=== PATIENT | female | born 1985 | race Caucasian/White ===

== ENCOUNTER 2017-10-19 06:47 | Day surgery (SDC) | payer OTHER ==
--- NOTE | 2017-10-18 14:17 | GHP ---
[f rep st] PREOP HISTORY AND PHYSICAL DATE OF ADMISSION: 10/19/2017 The patient is slated for surgery on 10/19/2017 on the Gynecology Service. HISTORY UPON ADMISSION: The patient is a 31-year-old G3, P1, A1, currently with concern for a blight ed ovum and being admitted for D and C. The patient had last menstrual period on August 26; that was her first period after an SAB at the end of June. The patient had lab evaluations due to the p revious SAB and showed good increase of her hCG on September 29 and October 01. She, however, has had more blood work that does not show a reassuring rise on October 06 and October 14 with hCG levels of 4577 on October 06 and 4582 on October 14. With this plateau of lab work, this is concerning, as t he ultrasound also does not show any development passed the gestational sac. The patient's gestation al sac is 5 weeks 4 days in size on October 14, and the should be at 7 weeks' gestation. There is no yolk sac or pole. There is a moderate-size subchorionic hemorrhage at 1.5 cm. Michael aterally, the ovaries appear normal, and there is no free fluid. There is what appears to be the cor pus luteum cyst on the right ovary. The patient has not had any bleeding or cramping. She has been advised as to the lack of ultrasound findings, given the level of the hCG and also the plateau of hCG levels is not reassuring. The patient is advised that this does not seem to be going forw andre, and the options of [id number] versus proceed with Cytotec versus D and C, and the patient want s definitive management with a D and C. She is wanting to have this done prior to travel before the s later this week. The patient will be advised as to the risks of the procedure at the bedside by Dr. Tovar. -related labs: Maternal blood type O-positive. HCG levels as noted above. PAST MEDICAL HISTORY: Herniated disks. PAST SURGICAL HISTORY: Left ACL repair in 2000. PAST OBSTETRIC HISTORY: Vaginal delivery at 41+ weeks in December 2015, uncomplicated with a viable female. Mild hemorrhage after the delivery of 500 mL. Early SAB in June 2017. Current consistent with a blighted ovum. ALLERGIES: No known drug allergies. CURRENT MEDICATIONS: Only vitamins. REVIEW OF SYSTEMS: 10 systems reviewed with the positives and negatives noted initially. LIMITED PHYSICAL EXAMINATION: VITAL SIGNS: Blood pressure 100/56, and the patient was clinically af ebrile on an office visit. GENERAL: The patient is a well-appearing white female in no physical dis tress. PELVIC: At the time of ultrasound, no tenderness, and the uterus and ovaries are normal. ASSESSMENT: Blighted ovum with plateaued hCG levels and gestational sac not consistent with 7 weeks with no pole or yolk sac. PLAN: The patient will present to Labor and Delivery for D and C on 10/19/2017. /[id number]/MODL
[2017-10-19] MEDS ORDERED: DOXYCYCLINE HYCLATE 100 MG CAP/TAB PO ONE ×2 (08:00→09:00)
--- NOTE | 2017-10-19 08:47 | PDANEPAE ---
ANE History of Present Illness Missed Ab. ANE Past Medical History - Cardiovascular History Hx Hypertension: No Hx Arrhythmias: No Hx Chest Pain: No Hx Coronary Artery / Peripheral Vascular Disease: No Hx CHF / Valvular Disease: No Hx Palpitations: No - Pulmonary History Hx COPD: No Hx Recent Upper Respiratory Infection: No Hx Oxygen in Use at Home: No Hx Sleep Apnea: No - Chronic Pain History Chronic Pain: Yes (Back) - Surgical History Prior Surgeries: General anesthesia for knee surgery (ACL). ANE Review of Systems Review of systems is: negative Review of Systems: - Exercise capacity Exercise capacity: >=4 METS ANE Patient History - Allergies Allergies/Adverse Reactions: No Known Allergies Allergy (Unverified 01/11/16 04:37) - Home Medications Home Medications: Vit27&Calcium/Iron/FA [] 1 tab PO DAILY 01/11/16 [Last Taken ] [place]-3 Fatty Acids/Fish Oil [Fish Oil 1,000 mg Capsule] 1 cap PO DAILY [Last Taken Unknown] Vit B Cmplx 3/Folic AC/C/Biot 1 tab PO DAILY 10/19/17 [Last Taken Unknown] - Anes Hx Anes Hx: no prior problems - Smoking Hx Smoking Status: Never smoked - Alcohol Use Alcohol Use: Rarely - Family Anes Hx Family Anes Hx: neg - N/A ANE Labs/Vital Signs - Vital Signs Height: 160.02 cm Weight: 49.895 kg ANE Physical Exam - Airway Neck exam: FROM Mallampati Score: Class 1 Mouth exam: normal dental/mouth exam - Pulmonary Pulmonary: no respiratory distress - Cardiovascular Cardiovascular: regular rate and rhythym - ASA Status ASA Status: I ANE Anesthesia Plan Anesthesia Plan: GA with mask
[2017-10-19] MEDS ORDERED: MIDAZOLAM 2 MG/2 ML VIAL ONE (08:49)
[2017-10-19] MEDS ORDERED: PROPOFOL/EMULSION 500 MG/50 ML BOTTLE IV ONE (09:01)
[2017-10-19] MEDS ORDERED: LIDOCAINE 2% 5 ML SDV ONE (09:03)
[2017-10-19] MEDS ORDERED: fentaNYL 100 MCG/2 ML INJ ONE (09:03)
[2017-10-19] MEDS ORDERED: DEXAMETHASONE 4 MG/ML VIAL ONE ×2 (09:04)
[2017-10-19] MEDS ORDERED: ONDANSETRON 4 MG/2 ML VIAL ONE (09:04)
[2017-10-19] MEDS ORDERED: HYDROCODONE/APAP 5/325 TAB PO PRN (10:11)
[2017-10-19] MEDS ORDERED: IBUPROFEN 600 MG TAB PO PRN (10:11)
--- NOTE | 2017-10-19 10:15 | POSTOPPROG ---
Post Op Note Date of Operation: 10/19/17 Surgeon: Francheska Tovar Anesthesiologist: Dr Felipe Duff Anesthesia: GET(General Endotracheal) Pre-op Diagnosis: missed @ 7 weeks Post-op Diagnosis: same Procedure: suction D and C Findings: normal uterus Inf/Abcess present in the surg proc area at time of surgery?: No Depth: Organ Space EBL: Minimal Total fluids administered: 500 Complications: none Specimen(s): products of conception
[2017-10-19] MEDS ORDERED: fentaNYL 100 MCG/2 ML INJ IVP PRN (10:31)
[2017-10-19] MEDS ORDERED: ONDANSETRON 4 MG/2 ML VIAL IVP PRN (10:31)
[2017-10-19] MEDS ORDERED: NALOXONE HCL 0.4 MG/ML INJ IVP PRN (10:31)
--- NOTE | 2017-10-19 10:31 | POSTANESTH ---
Post Anesthetic Evaluation Cardiovascular Status: Normal, Stable, Similar to Pre-Op Cond Respiratory Status: Normal, Stable, Similar to Pre-op Cond. Level of Consciousness/Mental Status: Can Participate in Eval, Alert and Oriented Pain Control: Adequate, Prn Tx Ordered Nausea/Vomiting Control: Adequate, Prn Tx Ordered Complications Possibly Related to Anesthesia: None Noted
[2017-10-19] MEDS ORDERED: KETOROLAC 30 MG/1 ML SDV ONE (10:55)
--- NOTE | 2017-10-19 15:11 | GOP ---
[f rep st] OPERATIVE REPORT DATE OF OPERATION: 10/19/2017 SURGEON: Francheska Tovar MD ANESTHESIA: General anesthesia. ANESTHESIOLOGIST: Felipe Duff MD PREOPERATIVE DIAGNOSIS: Missed at 7 weeks. POSTOPERATIVE DIAGNOSIS: Missed at 7 weeks. PROCEDURE PERFORMED: Suction dilation and curettage. FINDINGS: SPECIMENS: Products of conceptions. ESTIMATED BLOOD LOSS: Less than 10 cc. INDICATIONS: The patient is a 31-year-old, 3, para 1-0-1-1, who was admitted for a missed ab ortion, blighted ovum. Her last menstrual period was August 26 and that was her first period af ter a SAB at the end of June. The patient had lab work initially showing normal increase in hCG on September 29 and October 01; however, recurrent blood work a week later showed plateauing levels o f hCG. Ultrasound was performed when she was to be 7 weeks gestation and showed a gestational sac wi thout a pole or yolk sac and a moderate-sized subchorionic hemorrhage adjacent to the gestation al sac. Ovaries were normal. There was no free fluid. The patient has had no bleeding or cramping. She was advised that the lack of ultrasound findings consistent with her dates, as well as the plat eauing of the beta hCG, and concern for an abnormal , a blighted ovum. The patient was coun seled on treatment options with expectant management versus medical management with Cytotec versus felix ction dilation and curettage. The patient wished to have surgical management to not prolong the inev itable. The patient was consented for the procedure. She understood the risks and benefits. The ri sks including bleeding, infection, damage to the uterus, including possible risk of perforation damag e to other organs if perforation were to occur, risk of incomplete removal of all of the tissue with need for spontaneous expulsion or repeat procedure at a later time, and compromise of future fertilit y. She understood these risks and benefits and agreed to proceed. DESCRIPTION OF PROCEDURE: Patient was taken to the operating room where she was placed under general anesthesia without difficulty. She was prepped and draped in the dorsal lithotomy position and she had previously just drained her bladder. A weighted speculum was placed in the vagina and a Castellano retractor was used to visualize the cervix. The anterior lip of the cervix was grasped with a Roman tenaculum. The uterus sounded to 8 cm. The cervix was then gently dilated with Harrison dilators to a #8. A #8 curved suction curette was gently advanced from the cervix to the fundus, and tissue was removed with several passes of the suction dev ice. After no further tissue was visualized during suctioning, sharp curettage was then performed in a clockwise fashion until a gritty texture was palpated throughout the entire endometrial cavity. F inal pass of the suction revealed little bleeding and no further tissue. The tenaculum and the speculum were removed. A transvaginal ultrasound was then performed and a norm al uterus with a thin endometrial stripe and no further gestational sac or products of conception wer e visualized. The anterior lip of the cervix was hemostatic. Patient's bleeding was minimal. Lisa amaro tolerated the procedure well. Sponge, lap, needle, and instrument counts were correct x2. Chinedu paredes went to the recovery room in good condition. IV FLUIDS: 500 cc. URINE OUTPUT: Not measured. /[id number]/MODL
== END 2017-10-19 12:10 | disposition home or self-care (01) ==
LOC: FOBOP 06:47
PROVIDERS: ATTEND Obstetrics & Gynecology
PROC: 10D17ZZ Extraction of Products of Conception, Retained, Via Natural or Artificial Opening (ICD-10-PCS; principal; 2017-10-19)
DX: O02.1 Missed abortion (principal)
CPT/HCPCS: J1100; J1885; J2250; J2405; J2704; J3010

== ENCOUNTER 2018-10-04 07:30 | Inpatient (IN) | payer OTHER ==
--- NOTE | 2018-10-04 16:28 | PDGENHP ---
History and Physical - Chief Complaint IOL, 41 wks - History of Present Illness 32 yo today at 41w0d by MALATHI 09/27/18. She was seen in clinic today were SCE was 4cm and she had membranes stripped. ANCA WNL, but NST non-reactive with flat baseline. Recommended to present to L&D to start IOL. Had SROM and spontaneous labor with her first around 41 weeks. GBS positive on UCx in 1st tri so presumed postive carrier. Other issues: R CROSSCUTTER ROLLED GLASS 6x4mm with normal NIPT, resolved on F/u US. Anemia on iron supps. Metformin XR 750mg started 2 wks prior to delivery due to "atypical" PCOS. H/o chronic back pain. labs: O pos Antibody negative Hep B/HIV/RPR neg Rubella IMMUNE GBS POSITIVE (in urine UCx 1st tri) NIPT normal History Information - Allergies/Home Medication List Allergies/Adverse Reactions: No Known Allergies Allergy (Unverified 01/11/16 04:37) Home Medications: Vit27&Calcium/Iron/FA [] 1 tab PO DAILY 01/11/16 [Last Taken ] [place]-3 Fatty Acids/Fish Oil [Fish Oil 1,000 mg Capsule] 1 cap PO DAILY [Last Taken Unknown] Vit B Cmplx 3/Folic AC/C/Biot 1 tab PO DAILY 10/19/17 [Last Taken Unknown] I have personally reviewed and updated: family history, medical history, social history, surgical history - Past Medical History Additional medical history: Anemia, chronic back pain, atypical PCOS, h/o SAB x 2 - Surgical History Additional surgical history: x 1 - Family History Positive for: non-pertinent - Social History Smoking Status: Never smoked Alcohol Use: None Review of Systems Review of Systems: ROS: 10pt was reviewed & negative except for what was stated in HPI & below Physical Exam Physical Exam: Appears comfortable, NAD, pleasant. Belly soft, ND, longitudinal lie. FHR 140 bpm, minimal variability, rare accels, rare variable decels Lab Data & Imaging Review 10/04/18 16:30 Assessment & Plan Assessment: 32 yo at 41w0d here for IOL due to non-reassuring tracing on NST, post-dates. - PCN start now, will AROM after 1st dose in to begin IOL. Pit if needed after 2 hours. - CEFM due to non-reassuring status. - GBS pos - PCN. JM
[2018-10-04] MEDS ORDERED: OXYTOCIN/RINGERS LACTATE 1,000 ML IV PRN (16:34)
[2018-10-04] MEDS ORDERED: LR 1,000 ML IV PRN ×2 (16:34→18:53)
[2018-10-04] MEDS ORDERED: TERBUTALINE SULFATE 1 MG/ML VIAL IV PRN (16:34)
[2018-10-04] MEDS ORDERED: LIDOCAINE 1% 300 MG/30 ML SDV SC PRN (16:34)
[2018-10-04] MEDS ORDERED: AMMONIA AROMATIC 1 EACH AMP IH PRN (16:34)
[2018-10-04] MEDS ORDERED: OLIVE OIL 118 ML BTL MISC PRN (16:34)
[2018-10-04] MEDS ORDERED: EPSOM SALT 454 GM TP PRN (16:34)
[2018-10-04] MEDS ORDERED: MISOPROSTOL 200 MCG TAB PO PRN (16:34)
[2018-10-04] MEDS ORDERED: IBUPROFEN 600 MG TAB PO PRN (16:34)
[2018-10-04] MEDS ORDERED: PENICILLIN G POTASSIUM 5,000,000 UNIT in D5W 150 ML IV ONE (16:34)
[2018-10-04 16:49] LABS: PLATELET COUNT 186 10^3/uL (150-400)
[2018-10-04] MEDS ORDERED: LIDOCAINE 1% 300 MG/30 ML SDV ONE (16:50)
[2018-10-04] MEDS ORDERED: OLIVE OIL 118 ML BTL ONE (16:50)
[2018-10-04] MEDS ORDERED: MISOPROSTOL 200 MCG TAB ONE (16:51)
[2018-10-04] MEDS ORDERED: AMMONIA AROMATIC 1 EACH AMP IH ONE (16:51)
[2018-10-04] MEDS ORDERED: OXYTOCIN 10 UNIT/ML VIAL ONE (16:51)
--- NOTE | 2018-10-04 20:31 | OBDEL ---
Info Type: Vaginal Presentation at Delivery: Vertex L&D Analgesia/Anesthesia Type: None GBS+: Yes Antibiotic Used for + GBS: Ampicillin (PCN 5 million units given at 1722, delivery at 2009) Intrapartum Medications: Generic Name Dose Route Start Last Admin Trade Name Freq PRN Reason Stop Dose Admin Lactated Ringer's 1,000 mls @ 0 mls/hr 10/04/18 16:34 10/04/18 16:59 Lr IV 10/05/18 16:33 1,000 mls PRN PRN Administration SEE PROTOCOL CONDITIONS Protocol Per Protocol Discontinued Medications Generic Name Dose Route Start Last Admin Trade Name Freq PRN Reason Stop Dose Admin Penicillin G Potassium 5,000, 160 mls @ 160 mls/hr 10/04/18 16:34 10/04/18 17 :22 000 unit/ Dextrose IV 10/04/18 17:33 160 mls ONCE ONE Administration Protocol Indications for Delivery: Postterm Favorable Cervix Vaginal Delivery - Delivery Provider Delivery Physician/CNM: New Paez - Labor and Delivery Onset of Contractions Date: 10/04/18 Onset of Contractions Time: 18:30 Onset of Contractions Type: Augmented Rupture of Membranes Date: 10/04/18 Rupture of Membranes Time: 18:30 Rupture of Membranes Type: Artificial Amniotic Fluid Color: Clear Dilation Complete Date: 10/04/18 Dilation Complete Time: 20:00 Placenta Delivery Date: 10/04/18 Placenta Delivery Time: 20:17 Total Hours of Labor: 1 Non-surgical Procedures: Amniotomy Laceration: 1st Degree (Very superficial, hemostatic) Repair: Other (Specify) (None needed, naturally approximated - dry) Vaginal Sponge Count Correct: Yes Vaginal Needle Count Correct: Yes Vaginal Sweep Performed: Yes EBL: 250 Delivery Events: None Delivery Comment: 1st dose of PCN hung at 1722. AROM with clear fluid at 1835. Pt eventually got into the hydrotherapy tub. At 1958 pt reported feeling that ctx's had become quite intense and that she needed to push. I was off the unit at that time. She was brought back to bed and checked by RN found to be crowing at 1999. Baby delivered at 2009 by RN, I arrived at 2013 with baby on mom's chest, placenta still in situ. Reported by delivering RN to be no issues with nuchal cord, that baby delivered spontaneously, shoulders delivered easily/quickly and baby up on mom's chest. Placenta delivered spontaneously without issue. Very superficial first degree laceration well anatomically approximated at rest and hemostatic, no sutures needed. EBL 250cc. Mom and baby doing well in room. - Medications Labor Augmentation/Induction Indication: Post Dates, Other (Specify) (Non- reassuring status on NST) Data MALATHI: 09/27/18 Gestational Age: 41 week(s) and 0 day(s) Jones Delivery Date: 10/04/18 Delivery Time: 20:10 Sex of : Female Score (1 Min): 8 Score (5 Min): 9 ICD10 Worksheet Patient Problems: Problems Problem Status Onset Post-dates Acute Precipitous delivery, delivered (current hospitalization) Acute Active labor at term Acute Missed Acute - ICD10 Problem Qualifiers (1) Precipitous delivery, delivered (current hospitalization) (2) Post-dates Qualifiers: Post-term type: 40-42 weeks gestation Qualified Code(s): O48.0 - Post-term
[2018-10-04] MEDS ORDERED: SIMETHICONE 80 MG TAB CHEW PO PRN (21:09)
[2018-10-04] MEDS ORDERED: HYDROCORTISONE 0.5% CREAM TP PRN (21:09)
[2018-10-04] MEDS ORDERED: oxyCODONE IR 5 MG TAB PO PRN (21:09)
[2018-10-04] MEDS ORDERED: D5W IV SCH (21:22)
[2018-10-04] MEDS ORDERED: PENICILLIN POTASSIUM IV SCH (21:22)
[2018-10-05] MEDS: ACETAMINOPHEN 325 MG TAB PO SCH ×5 (01:18→21:14)
[2018-10-05] MEDS: IBUPROFEN 600 MG TAB PO SCH ×4 (02:00→22:17)
[2018-10-05] MEDS: DOCUSATE SODIUM 100 MG CAP PO PRN (09:32)
--- NOTE | 2018-10-05 13:32 | OBPP ---
Progress Note Assessment/Plan: Assessment:32 [id number] - PPD#1 s/p precipitous , anemia, good urine output. Plan: Iron supplementation, continue routine pp cares. Marcela Camacho MD, FACOG [facility] 10/05/18 15:04 Subjective/ Course: Pt doing well, resting comfortably, going well. Ambulating and voiding without difficulty. Mod lochia. 10/05/18 15:09 Objective: 10/05/18 06:30 Patient ABO/Rh O POSITIVE 10/04/18 16:30 Temp Pulse Resp BP Pulse Ox 36.6 C 89 16 105/66 97 10/04/18 23:42 10/04/18 23:42 10/04/18 23:42 10/04/18 23:42 10/04/18 22:07 gen - pleasant, NAD CV - RRR chest - CTAB abd - soft, fundus firm at u-2, + BS ext - no calf tenderness, trace BLE edema Uterine Position/Fundal Height: Umbilicus -2 Uterine Tone: Firm
[2018-10-05] MEDS: FERROUS SULFATE 140 MG TAB.ER PO SCH (13:45)
[2018-10-06] MEDS: ACETAMINOPHEN 325 MG TAB PO SCH ×3 (03:40→16:31)
[2018-10-06] MEDS: IBUPROFEN 600 MG TAB PO SCH ×3 (04:12→16:32)
[2018-10-06 07:42] VITALS: BP 98/66
--- NOTE | 2018-10-06 08:27 | OBPP ---
Progress Note Assessment/Plan: Assessment: 1) s/p precipitous PPD #2 - pt is stable 2) Anemia - pt is asymptomatic Plan: Continue routine pp care Plan for d/c later today Instructions reviewed with pt No Rx given Cont PNV, iron and colace Pelvic rest RTC in 4 and 6 weeks for pp visit 10/06/18 08:24 Subjective/ Course: Pt doing well, resting comfortably, going well. Ambulating and voiding without difficulty. Mod lochia. 10/05/18 15:09 10/06/18 08:25 Pt seen and examined. Doing well with no complaints. Mild cramping. Mod lochia. Pt is OOB, williams regular diet, voiding without difficulty and passing flatus. No BM yet. BF is going well. Objective: 10/05/18 06:30 Patient ABO/Rh O POSITIVE 10/04/18 16:30 Temp Pulse Resp BP Pulse Ox 36.6 C 72 17 98/66 L 95 10/06/18 07:41 10/06/18 07:41 10/06/18 07:41 10/06/18 07:41 10/06/18 07:41 Uterine Position/Fundal Height: Umbilicus -2 Uterine Tone: Firm Physical Exam - Physical Exam General Appearance: WD/WN, alert, no apparent distress Respiratory: lungs clear, normal breath sounds Cardiac/Chest: regular rate, rhythm Abdomen: normal bowel sounds, non-tender, soft, flatus (+) Extremities: non-tender, normal inspection Skin: normal color Neuro/Psych: alert, normal mood/affect, oriented x 3
--- NOTE | 2018-10-06 08:27 | OBGCSDC ---
General Delivery Information - General Info : 4 Para: 2 Abortions: 2 Type: Vaginal L&D Analgesia/Anesthesia Type: None Admission Date: 10/04/18 Labs: Patient ABO/Rh O POSITIVE 10/04/18 16:30 Hct 34.9 % (38.0-47.0) L 10/05/18 06:30 - Hospital Course : Pt doing well, resting comfortably, going well. Ambulating and voiding without difficulty. Mod lochia. 10/05/18 15:09 10/06/18 08:25 Pt seen and examined. Doing well with no complaints. Mild cramping. Mod lochia. Pt is OOB, williams regular diet, voiding without difficulty and passing flatus. No BM yet. BF is going well. Vaginal - Delivery Provider Delivery Physician/CNM: New Paez - Diagnosis Labor: Augmented Rupture of Membranes Type: Artificial Amniotic Fluid Color: Clear Laceration: 1st Degree (Very superficial, hemostatic) Repair: Other (Specify) (None needed, naturally approximated - dry) Delivery Events: None - Procedures Non-surgical Procedures: Amniotomy - Delivery Non-surgical Procedures: Amniotomy EBL: 250 [place] Data MALATHI: 09/27/18 Gestational Age: 41 week(s) and 2 day(s) Jones Delivery Date: 10/04/18 Delivery Time: 20:10 Sex of : Female [place] Weight (gm): 3932 g Score (1 Min): 8 Score (5 Min): 9 Discharge Information - Discharge Information Condition: Good Instruction/Follow Up: Four Weeks, Six Weeks
[2018-10-06] MEDS: FERROUS SULFATE 140 MG TAB.ER PO SCH (08:39)
[2018-10-06] MEDS: DOCUSATE SODIUM 100 MG CAP PO PRN (08:39)
== END 2018-10-06 18:30 | disposition home or self-care (01) | DRG 807 ==
LOC: FLD 14:00 → FOB 21:37
PROVIDERS: ADMIT Obstetrics & Gynecology; ATTEND Obstetrics & Gynecology
PROC: 10907ZC Drainage of Amniotic Fluid, Therapeutic from Products of Conception, Via Natural or Artificial Opening (ICD-10-PCS; principal; 2018-10-04)
PROC: 10E0XZZ Delivery of Products of Conception, External Approach (ICD-10-PCS; principal; 2018-10-04)
PROC: 0HQ9XZZ Repair Perineum Skin, External Approach (ICD-10-PCS; principal; 2018-10-04)
DX: O76 Abnormality in fetal heart rate and rhythm complicating labor and delivery (principal); Z37.0 Single live birth; O48.0 Post-term pregnancy; Z3A.41 41 weeks gestation of pregnancy; O99.824 Streptococcus B carrier state complicating childbirth; O70.0 First degree perineal laceration during delivery
CPT/HCPCS: J2540; J2590